=== PATIENT | female | born 1965 | race Two or more races ===

== ENCOUNTER → 2016-10-30 | Outpatient (CLI) | payer OTHER ==
[~2016-10-30] MED LIST: BISA10SU54 PR; CALC0.25 PO; CALC200T3 PO; CHLO25TA PO; LEVO25TA4 PO; LORA-446 PO; LOSA50TA6 PO; LOSARTAN; MECL25TA4 PO; ONDA4TAB10 PO; OXYC-223 PO
== END | disposition home or self-care (01) ==
LOC: RAD 10:38
PROVIDERS: ATTEND Internal Medicine Geriatric Medicine
DX: M25.474 Effusion, right foot (principal)

== ENCOUNTER 2020-08-19 22:19 | Emergency (ER) | payer OTHER ==
[~2020-08-19] VITALS: Ht 152.4 cm; Wt 59.3 kg
[~2020-08-19 22:19] MED LIST changes: +LOSA50TA14 PO; -LOSA50TA6 PO; +MECL-101 PO; -MECL25TA4 PO; -OXYC-223 PO; +OXYC1TAB17 PO
[2020-08-19] MEDS ORDERED: SODIUM CHLORIDE FLUSH 10ML SYR IVF ONE (23:00)
[2020-08-19 23:14] LABS: BASOPHILS % (AUTO) 1 % (0-1); EOSINOPHILS % (AUTO) 3 % (1-7); LYMPHOCYTES % (AUTO) 35 % (22-44); MEAN CORPUSCULAR HEMOGLOBIN 29.9 pg (27.0-34.8); MEAN CORPUSCULAR HGB CONC 33.8 g/dL (32.4-35.8); MEAN PLATELET VOLUME 8.6 fL (7.4-10.4); MONOCYTES % (AUTO) 7 % (2-9); NEUTROPHILS % (AUTO) 54 % (42-75); PLATELET COUNT 267 x10^3/uL (130-400); RED CELL DISTRIBUTION WIDTH 14.6 % (9.6-15.2)
[2020-08-19 23:17] LABS: MD NO
[2020-08-19 23:23] LABS: ALANINE AMINOTRANSFERASE 39 U/L (12-78); ALBUMIN 3.9 g/dL (3.4-5.0); ANION GAP 7 mmol/L (5-15); CHLORIDE 104 mmol/L (98-107); CREATININE 1.14 mg/dL (0.55-1.02)
[2020-08-19 23:25] LABS: ALKALINE PHOSPHATASE 99 U/L (45-117); BILIRUBIN,TOTAL 0.4 mg/dL (0.2-1.0); TOTAL PROTEIN 8.5 g/dL (6.4-8.2)
[2020-08-19 23:38] LABS: MICROSCOPIC AUTO
[2020-08-20 00:20] VITALS: BP 134/81
== END 2020-08-20 00:30 | disposition home or self-care (01) ==
LOC: ED 08-20 00:15
DX: S39.012A Strain of muscle, fascia and tendon of lower back, initial encounter (principal); S29.012A Strain of muscle and tendon of back wall of thorax, initial encounter; R10.31 Right lower quadrant pain; R10.11 Right upper quadrant pain; R31.9 Hematuria, unspecified; X58.XXXA Exposure to other specified factors, initial encounter; Y93.89 Activity, other specified; Y92.89 Other specified places as the place of occurrence of the external cause; Y99.8 Other external cause status
CPT/HCPCS: 36415; 74176; 80053; 81001; 85025; 99282; 99284